=== PATIENT | female | born 1990 ===

== ENCOUNTER 2019-09-30 21:00 | Emergency (ER) | payer BC, OTHER ==
[2019-09-30 21:19] VITALS: BP 97/60
[2019-09-30] MEDS ORDERED: Ketorolac INJ* 30 MG/ML 1 ML VIAL IM ONE (21:20)
--- NOTE | 2019-09-30 22:05 | UC ---
Hand/Wrist HPI - HPI Summary HPI Summary: 29 yo female fell on left wrist about an hour [employer] she is right handed unable to move without severe pain no numbness - History Of Current Complaint Chief Complaint: UCUpperExtremity Stated Complaint: WRIST INJURY Time Seen by Provider: 09/30/19 21:15 Hx Obtained From: Patient Hx Last Menstrual Period: 3 weeks ago Onset/Duration: Sudden Onset, Lasting Minutes Severity Initially: Severe Severity Currently: Severe Pain Intensity: 8 Pain Scale Used: 0-10 Numeric Character Of Pain: Aching, Throbbing Aggravating Factor(s): Movement Alleviating Factor(s): Nothing Associated Signs And Symptoms: Positive: Swelling Related History: Dominant Hand Right Hands: 1 - swollen - Allergies/Home Medications Allergies/Adverse Reactions: Allergies Allergy/AdvReac Type Severity Reaction Status Date / Time No Known Allergies Allergy Verified 09/30/19 21:17 Home Medications: Home Medications Psoriasis Cream 09/30/19 [History] PMH/Surg Hx/FS Hx/Imm Hx Previously Healthy: Yes - Surgical History Surgical History: None - Family History Known Family History: Positive: Non-Contributory - Social History Alcohol Use: None Substance Use Type: None Smoking Status (MU): Never Smoked Tobacco Review of Systems All Other Systems Reviewed And Are Negative: Yes Constitutional: Positive: Negative Skin: Positive: Negative Eyes: Positive: Negative ENT: Positive: Negative Respiratory: Positive: Negative Cardiovascular: Positive: Negative Gastrointestinal: Positive: Negative Genitourinary: Positive: Negative Motor: Positive: Negative Neurovascular: Positive: Negative Musculoskeletal: Positive: Arthralgia - left wrist, Decreased ROM - left wrist, Edema - left wrist Neurological: Positive: Negative Psychological: Positive: Negative Physical Exam Triage Information Reviewed: Yes Appearance: Well-Appearing, No Pain Distress, Well-Nourished Vital Signs: Initial Vital Signs Temp 100.3 F 09/30/19 21:17 Pulse 88 09/30/19 21:17 Resp 18 09/30/19 21:17 BP 97/60 09/30/19 21:17 Pulse Ox 99 09/30/19 21:17 Vital Signs Reviewed: Yes Eyes: Positive: Conjunctiva Clear ENT: Positive: Hearing grossly normal. Negative: Nasal congestion, Nasal drainage, Tonsillar swelling, Tonsillar exudate, Hoarse voice Neck: Positive: Supple, Nontender Respiratory: Positive: Lungs clear, Normal breath sounds, No respiratory distress, No accessory muscle use Cardiovascular: Positive: RRR, No Murmur Musculoskeletal: Positive: Other: - see image, left elbow FROM Neurological Exam: Normal Neurological: Positive: Alert Psychological Exam: Normal Skin Exam: Normal Procedures - Splinting Left Upper Extremity Hand-Made Type: orthoglass Splint: sugar-tong Pre-Proc Neuro Vasc Exam: normal Post-Proc Neuro Vasc Exam: normal Splint Applied by Provider: Alexis Anguiano Diagnostics - Radiology No standard instances Radiology Interpretation Completed By: ED Physician Summary of Radiographic Findings: comminuted fx left distal radius with intra articular extension. scaphoid looks abnormal in one view. query positional Hand/Wrist Course/Dx - Differential Dx/Diagnosis Provider Diagnosis: Fracture of radius, distal, left, closed Discharge ED - Sign-Out/Discharge Documenting (check all that apply): Patient Departure All imaging exams completed and their final reports reviewed: No - Discharge Plan Condition: Stable Disposition: HOME Patient Education Materials: Wrist Fracture in Adults (ED) Referrals: Henry Holden MD [Medical Doctor] - 1 Day Additional Instructions: splint/slint advil 3 pills 4x day with food for pain the official reading is pending I read you xr as a comminuted fracture of the distal right radius with intra articular extension this needs to be seen by a specialist call in am - Billing Disposition and Condition Condition: STABLE Disposition: Home
--- NOTE | 2019-10-01 11:39 | UC ---
- Progress Note Progress Note: RADIOLOGY REPORT REVIEWED. CONFIRMS TRANSVERSE, COMMINUTED, IMPACTED INTRA- ARTICULAR FRACTURE OF THE DISTAL RADIUS. NO CHANGE IN MANAGEMENT. FOLLOW-UP WITH ORTHOPEDICS ADVISED. Course/Dx - Diagnoses Provider Diagnoses: Fracture of radius, distal, left, closed Discharge ED - Sign-Out/Discharge Documenting (check all that apply): Post-Discharge Follow Up All imaging exams completed and their final reports reviewed: Yes - Discharge Plan Condition: Stable Disposition: HOME Patient Education Materials: Wrist Fracture in Adults (ED) Referrals: Henry Holden MD [Medical Doctor] - 1 Day Additional Instructions: splint/slint advil 3 pills 4x day with food for pain the official reading is pending I read you xr as a comminuted fracture of the distal right radius with intra articular extension this needs to be seen by a specialist call in am - Billing Disposition and Condition Condition: STABLE Disposition: Home
== END 2019-09-30 22:21 | disposition home or self-care (01) ==
LOC: UCEAST 21:00
DX: S52.572A Other intraarticular fracture of lower end of left radius, initial encounter for closed fracture (principal); W18.30XA Fall on same level, unspecified, initial encounter; Y92.9 Unspecified place or not applicable
CPT/HCPCS: 25600; 99201; G0463; J1885